=== PATIENT | female | born 1935 ===

== ENCOUNTER 2022-03-19 12:17 | Outpatient (REF) | payer OTHER, SELFPAY | END 2022-03-19 12:18 | disposition home or self-care (01) | LOC: HO.SH 12:17 | PROVIDERS: Visit Provider Internal Medicine | DX: Z01.118 Encounter for examination of ears and hearing with other abnormal findings (principal); H90.3 Sensorineural hearing loss, bilateral | CPT/HCPCS: 92553; 92555; 92567 ==

== ENCOUNTER 2022-03-29 14:08 | Outpatient (REF) | payer OTHER, SELFPAY ==
--- NOTE | 2022-03-29 14:50 | MHC.AU.MED ---
Medical Clearance for Hearing Instrumentation Date: 03/29/22 Patient Name: Vikki Westbrook Date of : 1935 Primary Care Provider: Charles Marrufo MD We have seen your patient on 03/29/22 and have determined that they are a candidate for amplification (See accompanying report). Specifically, they would benefit from: Hearing aid use in both ears There is a statute that addresses Medical Evaluation Requirements prior to fitting a patient with a hearing aid. According to [place] statute 265 CMR:6.03(1), (a) General. Except as provided in 265 CMR 6.03(1)(b), a ride attendant shall not sell a hearing aid unless the prospective user has presented to the ride attendant a written statement signed by a licensed physician that states that the patient's hearing loss has been medically evaluated and the patient may be considered a candidate for a hearing aid. The medical evaluation must have taken place within the preceding six months. Please note: Due to the [place] Statute referenced above, we cannot accept a signature other than that of a licensed physician. RETAIL MERCHANDISING SPECIALIST and PA signatures cannot be accepted. I am in agreement with the above recommendation. There is no medical contraindication for hearing instrumentation. Physician Signature Date Physician Name (Printed)
--- NOTE | 2022-04-01 09:36 | MHC.AU.HA1 ---
Hearing Aid Evaluation Date of Visit: 03/29/22 Historical Information:Description of Hearing: Moderate to moderately-severe sensorineural hearing loss, bilaterally Current personal amplification information: Unilateral amplifier purchased in [place] about three years ago Summary: Vikki has had hearing loss for several years. She has used an amplifier inconsistently due to issues with the sound quality. Vikki has difficulty communicating in most listening environments and is hoping hearing aids help ease some of those communication difficulties. She attends an adult day care program during the days and is otherwise with family including her and grandchildren. Vikki opted for custom ITC hearing aids for ease of insertion and no [id number] pieces. Hearing Aid Prescription: Based on the individual?s shared listening needs, communication environments, dexterity, desire for connectivity, and personal preferences, the following prescription for amplification has been made: Right ear: Make, Model, Color: Starky Evolv AI 1600 ITC R Color: [place] Battery Size: Rechargeable Left ear:Left ear prescription to be same as Right Hearing Aid above: Make, Model, Color: Starky Evolv AI 1600 ITC R Color: [place] Battery Size: Rechargeable Plan of Care: Patient wishes to purchase hearing aids as prescribed Action Taken/Action Needed: Earmold Impressions Taken (in drawer). Medical Clearance to be requested from PCP/ENT. Hearing Instrument Fitting to be scheduled when materials arrive Primary Diagnosis: H90.3 Bilateral Sensorineural Hearing Loss Signature: Provider: Mikki Washington, [facility]
== END 2022-03-29 14:09 | disposition home or self-care (01) ==
LOC: HO.HAP 14:08
PROVIDERS: Visit Provider Internal Medicine
DX: Z46.1 Encounter for fitting and adjustment of hearing aid (principal); H90.3 Sensorineural hearing loss, bilateral
CPT/HCPCS: 92591; V5275

== ENCOUNTER 2022-05-27 14:24 | Outpatient (REF) | payer OTHER, SELFPAY ==
--- NOTE | 2022-05-27 16:22 | MHC.AU.HA2 ---
Hearing Instrument Fitting- Adult- Binaural Date of Visit: 05/27/22 Hearing Instruments Dispensed: Right Ear: Make, Model, Color, Serial Number: Loren ESCOBAR 1600 ITC R SN: [id number] Color: [place] Hairspring Inspector Repair Warranty: 06/16/2025 Hairspring Inspector Loss and Damage Warranty: 06/16/2025 [facility] Service Plan: 05/28/2023 Battery Size: Rechargeable Type of Wax Guard: HearClear Left Ear: Make, Model, Color, Serial Number: Loren ESCOBAR 1600 ITC R SN: [id number] Color: [place] Hairspring Inspector Repair Warranty: 06/16/2025 Hairspring Inspector Loss and Damage Warranty: 06/16/2025 [facility] Service Plan: 05/27/2022 Battery Size: Rechargeable Type of Wax Guard: HearClear Summary of Fitting: Performed feedback analyzer and real ear measurements. Comfortable at real ear settings. Narmadabemandy noted her own voice seemed loud; however, it was not uncomfortable. Explained occlusion effect and how she is hearing her voice differently but with consistent use she will acclimate. Discussed care, use, and rechargeability including manually turning on/off and changing wax guards. Volume wheel enabled; however, [id number] reported it would be too difficult manage independently. Explained importance of daily, consistent use, and acclimatization period. Recommendations: A hearing instrument follow-up was scheduled. Diagnosis Code(s): Primary Diagnosis: H90.3 Bilateral Sensorineural Hearing Loss Signature: Provider: Mikki Washington, [facility]
== END 2022-05-27 14:25 | disposition home or self-care (01) ==
LOC: HO.HAP 14:24
PROVIDERS: Visit Provider Internal Medicine
DX: Z46.1 Encounter for fitting and adjustment of hearing aid (principal); H90.3 Sensorineural hearing loss, bilateral
CPT/HCPCS: V5011; V5020; V5160; V5259

== ENCOUNTER 2022-06-27 14:57 | Outpatient (REF) | payer SELFPAY | END 2022-06-27 14:58 | disposition home or self-care (01) | LOC: HO.HAP 14:57 | PROVIDERS: Visit Provider Internal Medicine | DX: Z13.89 Encounter for screening for other disorder (principal) ==

== ENCOUNTER 2022-08-21 15:01 | Outpatient (REF) | payer SELFPAY | END 2022-08-21 15:02 | disposition home or self-care (01) | LOC: HO.HAP 15:01 | PROVIDERS: Visit Provider Internal Medicine | DX: Z13.89 Encounter for screening for other disorder (principal) ==

== ENCOUNTER 2022-08-30 13:33 | Outpatient (REF) | payer SELFPAY | END 2022-08-30 13:34 | disposition home or self-care (01) | LOC: HO.HAP 13:33 | PROVIDERS: Visit Provider Internal Medicine | DX: Z13.89 Encounter for screening for other disorder (principal) ==

== ENCOUNTER 2023-03-19 13:25 | Outpatient (REF) | payer SELFPAY | END 2023-03-19 13:26 | disposition home or self-care (01) | LOC: HO.HAP 13:25 | PROVIDERS: Visit Provider Internal Medicine | DX: Z13.89 Encounter for screening for other disorder (principal) ==

== ENCOUNTER 2023-03-28 15:22 | Outpatient (REF) | payer SELFPAY | END 2023-03-28 15:23 | disposition home or self-care (01) | LOC: HO.HAP 15:22 | PROVIDERS: Visit Provider Internal Medicine | DX: Z13.89 Encounter for screening for other disorder (principal) ==